=== PATIENT | male | born 1970 | race Caucasian/White ===

== ENCOUNTER 2022-09-25 16:06 | Emergency (ER) | payer OTHER, MEDICAID ==
[~2022-09-25] VITALS: Ht 175.3 cm; Wt 70.3 kg
[2022-09-25 16:19] VITALS: BP_SYST 85
--- NOTE | 2022-09-25 16:21 | NUR ---
Patient to ER bed 06 to gown for evaluation. Side rails up. Report given to JAKOB Aguilar.
--- NOTE | 2022-09-25 16:26 | NUR ---
Rashel bustillogermain in [facility] - 09/25/22 at 1629 by [id number] 52 years old male francisca roldan
--- NOTE | 2022-09-25 16:29 | NUR ---
89 years old male biba from home c/o gen weakness placed oncardiac monitor continous pulse will continue to monitor.
[2022-09-25] MEDS ORDERED: NACL 0.9% 1,000 ML IV ONE (17:00)
[2022-09-25 17:52] LABS: EOSINOPHILS # (AUTO) 0.1 K/uL (0.0-0.4); EOSINOPHILS % (AUTO) 0.9 % (0.0-4.0); MEAN CORPUSCULAR HGB CONC 34 % (32-36); MONOCYTES # (AUTO) 0.8 K/uL (0.0-1.0); NEUTROPHILS # (AUTO) 11.2 K/uL (1.8-7.7); WHITE BLOOD COUNT (AUTO) 12.6 K/uL (4.8-10.8)
[2022-09-25 17:57] LABS: BASOPHILS % (AUTO) 0.3 % (0.0-2.0); HEMATOCRIT 39.4 % (36-54); HEMOGLOBIN 13.5 g/dL (14.0-18.0); LYMPHOCYTES # (AUTO) 0.4 K/uL (1.0-5.5); LYMPHOCYTES % (AUTO) 3.4 % (20.5-51.5); MEAN CORPUSCULAR HEMOGLOBIN 29 pg (27-31); MEAN CORPUSCULAR VOLUME 85 fL (79.0-98.0); MONOCYTES % (AUTO) 6.5 % (1.7-9.3); NEUTROPHILS % (AUTO) 88.9 % (40.0-70.0); PLATELET COUNT (AUTO) 231 K/uL (130-430); RED BLOOD CELL COUNT(AUTO) 4.65 MIL/uL (4.2-6.2); RED CELL DISTRIBUTION WIDTH 13.1 % (9.0-15.0)
[2022-09-25 17:59] LABS: ANION GAP 9 (5-15); CALCIUM 8.6 mg/dL (8.4-11.0); CHLORIDE 109 mmol/L (98-107); CREATININE 1.87 mg/dL (0.55-1.30); GLUCOSE 102 mg/dL (70-99); UREA NITROGEN, BLOOD 28 mg/dL (8-21)
[2022-09-25 18:11] LABS: ALANINE AMINOTRANSFERASE 34 U/L (12-78); ALBUMIN 3.2 g/dL (3.4-4.8); AMYLASE 112 U/L (0-100); ASPARTATE AMINOTRANSFERASE 28 U/L (10-37); LIPASE 93 U/L (73-393); TOTAL BILIRUBIN 0.6 mg/dL (0.0-1.0)
[2022-09-25 18:19] LABS: C-REACTIVE PROTEIN QUANT < 0.2 mg/dL (0-0.5); GFR AFRICAN AMERICAN 49 mL/min (>90)
[2022-09-25] MEDS ORDERED: ONDANSETRON HCL 4 MG/2 ML VIAL IVP ONE (19:00)
--- NOTE | 2022-09-25 19:08 | NUR ---
PATIENT MADE AWARE OF NEED OF URINE SAMPLE, VSS, C/O NAUSEA ZOFRAN GIVEN WILL CONTINUE TO MONITOR.
--- NOTE | 2022-09-25 19:30 | NUR ---
Received report from JAKOB Aguilar; assuming care of patient at this time.
--- NOTE | 2022-09-25 19:35 | NUR ---
JIM Brooke at bedside.
--- NOTE | 2022-09-25 19:38 | NUR ---
Patient A/Ox4, VSS, ambulatory, resp even and unlabored. Patient lying in bed with safety precautions in place. Patient's at bedside. Nad noted at this time
[2022-09-25 19:52] LABS: ACETONE, SERUM NEGATIVE (NEGATIVE)
[2022-09-25] MEDS ORDERED: IBUP-1971 PO (19:57)
[2022-09-25] MEDS ORDERED: ONDA-8 TL (19:57)
[2022-09-25 20:10] VITALS: BP_SYST 135
--- NOTE | 2022-09-25 20:10 | NUR ---
Patient given written and verbal discharge instructions and verbalizes understanding. ER MD discussed with patient the results and treatment provided. Patient in stable condition. ID arm band removed. IV catheter removed intact and dressing applied, no active bleeding. Rx of Zofran given. Patient educated on pain management and to follow up with PMD. Pain Scale 0/10. Opportunity for questions provided and answered. Medication side effect fact sheet provided. Patient A/Ox4, VSS, ambulatory, resp even and unlabored. Patient in stable conditon and accompanied by upon discharge.
== END 2022-09-25 20:10 | disposition home or self-care (01) ==
LOC: SED 16:06
DX: K52.9 Noninfective gastroenteritis and colitis, unspecified (principal); R55 Syncope and collapse; R11.10 Vomiting, unspecified; Z79.899 Other long term (current) drug therapy
CPT/HCPCS: 99285; 74176; 96374; 71045; 96361; 80053; 82009; 82150; 82550; 83690; 85025; 86140; 84484; 36415; 93005; 76376; 83605; J2405; J7030

== ENCOUNTER 2023-03-03 17:48 | Inpatient (IN) | payer OTHER, MEDICAID ==
[~2023-03-03] VITALS: Ht 175.3 cm; Wt 70.8 kg
[~2023-03-03 17:48] MED LIST: IBUP-1971 PO; ONDA-8 TL
[2023-03-03 17:50] VITALS: BP_SYST 166
--- NOTE | 2023-03-03 17:52 | NUR ---
PT BROUGHT BACK TO BED IN HALLWAY AND TRIAGED. WILL ASSUME CARE
--- NOTE | 2023-03-03 17:55 | NUR ---
PT STATES GENERALIZED ABD PAIN WITH VOMITING FOR LAST 2 1/2 DAYS, PT VOMITUS HAS NOW TURNED DARK BROWN. PT STATES NO DIARRHEA AT THIS TIME.
[2023-03-03] MEDS ORDERED: NACL 0.9% 2,000 ML IV ONE (19:30)
[2023-03-03] MEDS ORDERED: ONDANSETRON HCL 4 MG/2 ML VIAL IVP ONE (19:30)
[2023-03-03] MEDS ORDERED: PANTOPRAZOLE SODIUM 40 MG/VIAL (PROTONIX) IVP ONE (19:30)
[2023-03-03 19:39] LABS: HEMATOCRIT 39.9 % (36-54); MEAN CORPUSCULAR HEMOGLOBIN 29 pg (27-31); MEAN CORPUSCULAR HGB CONC 33 % (32-36); MEAN CORPUSCULAR VOLUME 87 fL (79.0-98.0); PLATELET COUNT (AUTO) 226 K/uL (130-430); RED BLOOD CELL COUNT(AUTO) 4.56 MIL/uL (4.2-6.2); RED CELL DISTRIBUTION WIDTH 13.2 % (9.0-15.0); WHITE BLOOD COUNT (AUTO) 15.5 K/uL (4.8-10.8)
[2023-03-03 19:40] LABS: CALCIUM 8.6 mg/dL (8.4-11.0); CREATININE 2.13 mg/dL (0.55-1.30)
[2023-03-03 19:41] LABS: INR 1.2 (0.80-1.20)
--- NOTE | 2023-03-03 19:53 | NUR ---
BLOOD CULTURES DRAWN AND SENT, IV ACCESS OBTAINED, PT MEDICATED PER ORDERS, PT PLACED ON GOWN AND ON MONITOR.
[2023-03-03 19:56] LABS: ALBUMIN 2.9 g/dL (3.4-4.8); TOTAL BILIRUBIN 1.4 mg/dL (0.0-1.0)
[2023-03-03 20:10] LABS: BAND % (MANUAL) 1 % (0-6); BASOPHILS % (MANUAL) 0 % (0-2); EOSINOPHILS % (MANUAL) 1 % (0-7); LYMPHOCYTES % (MANUAL) 3 % (20-46); MONOCYTES % (MANUAL) 5 % (0-11)
[2023-03-03] MEDS ORDERED: PROCHLORPERAZINE EDISYLATE 10 MG/2 ML VIAL IVP ONE (20:30)
[2023-03-03] MEDS ORDERED: DIPHENHYDRAMINE INJ 50 MG/ML VIAL IVP ONE (20:30)
[2023-03-03] MEDS ORDERED: PIPERACILLIN/TAZO 3.375 GM in NS 50 ML IV ONE (20:30)
--- NOTE | 2023-03-03 22:15 | NUR ---
Admit bed requested Patient will be admitted to care of Dr. Yudith SINGH. Admitted to TELE unit. Diagnosis GI BLEED, RENAL FAILURE Inpatient (Yes or No) Y Observation (Yes or No) N Orientation concerns or request close to nursing station (Yes or No) N Covid Status PENDING On vent or bipap N Isolation requirements N Needs a sitter N From Home (Yes or if No enter name of facility) N Requires Dialysis (Yes or No) N Med Rec Completed (Yes of No) N
[2023-03-03] MEDS ORDERED: LORazepam 2 MG/ML VIAL IVP PRN (23:00)
[2023-03-03] MEDS ORDERED: MORPHINE 2 MG/ML INJ. SYRINGE IVP PRN (23:00)
[2023-03-03] MEDS ORDERED: NALOXONE HCL 0.4 MG/ML AMP (NARCAN) IVP PRN (23:00)
[2023-03-03] MEDS ORDERED: MORPHINE 4 MG INJ. 4 MG/ML VIAL IVP PRN (23:00)
--- NOTE | 2023-03-03 23:20 | NUR ---
PT TRANSPORTED BY ED TO TELE BED 101. REPORT GIVEN TO JITENDRA ROBERT. PT AAOX4, VSS
[2023-03-03 23:30] VITALS: BP_SYST 137
--- NOTE | 2023-03-03 23:30 | NUR ---
ADMISSION NOTE Received patient from ER via gurney. Patient admitted with diagnosis of GI Bleed and Renal Failure. Patient is awake, alert, oriented X 4. Patient oriented to hospital room, call light, toileting, pain management and safety-teach back done. Patient informed that I will be his nurse and that their room number is 101B. Personal belongings checked and Belongings List documented. Call light within reach.
[2023-03-03] MEDS: D5/0.45 NS 1,000 ML IV SCH (23:34)
[2023-03-03] MEDS: ONDANSETRON HCL 4 MG/2 ML VIAL IVP PRN (23:49)
[2023-03-03] MEDS ORDERED: PIPERACILLIN/TAZOBACTAM 3.375 GM/VIAL (ZOSYN) IV ONE (23:53)
[2023-03-04 00:47] VITALS: BP_SYST 155
--- NOTE | 2023-03-04 04:40 | NUR ---
CONSULTATION PAGED/CALLED Reason for Consultation: GI Bleed Person Who was Notified: Jessica Consulting Physician: Dr. Haas (Dr. Shook is collision technician) Ordering Physician: Herman Finch
--- NOTE | 2023-03-04 04:44 | NUR ---
CONSULTATION PAGED/CALLED Reason for Consultation: Renal Failure Person Who was Notified: Jessica Consulting Physician: Ld Davenport (Dr. Clark is penetration tester) Ordering Physician: Herman Finch
[2023-03-04 06:31] LABS: BASOPHILS % (AUTO) 0.1 % (0.0-2.0); EOSINOPHILS % (AUTO) 0.2 % (0.0-4.0); HEMOGLOBIN 12.6 g/dL (14.0-18.0); LYMPHOCYTES # (AUTO) 0.4 K/uL (1.0-5.5); LYMPHOCYTES % (AUTO) 3.5 % (20.5-51.5); MEAN CORPUSCULAR HEMOGLOBIN 29 pg (27-31); MEAN CORPUSCULAR HGB CONC 32 % (32-36); MEAN CORPUSCULAR VOLUME 89 fL (79.0-98.0); MONOCYTES # (AUTO) 0.8 K/uL (0.0-1.0); MONOCYTES % (AUTO) 6.4 % (1.7-9.3); NEUTROPHILS # (AUTO) 11.1 K/uL (1.8-7.7); NEUTROPHILS % (AUTO) 89.8 % (40.0-70.0); PLATELET COUNT (AUTO) 177 K/uL (130-430); RED BLOOD CELL COUNT(AUTO) 4.37 MIL/uL (4.2-6.2); RED CELL DISTRIBUTION WIDTH 13.3 % (9.0-15.0); WHITE BLOOD COUNT (AUTO) 12.4 K/uL (4.8-10.8)
[2023-03-04 06:48] LABS: CREATININE 2.07 mg/dL (0.55-1.30); PHOSPHORUS 3.3 mg/dL (2.7-4.5)
--- NOTE | 2023-03-04 07:30 | NUR ---
Received Patient sitting in bed, actively vomiting. Offgoing RN to provide PRN Zofran to avoid delay as they are IV push & oncoming coverage RN is unavailable at this time d/t receiving report for her assigned patients. Patient breathing is difficult to assess d/t active vomiting. Patient denies pain or SOB. Patient states he is thirsty & requests something to drink or ice chips but diet order currently NPO. 20 gauge to left AC with D5 1/2 NS running @ 100 mL/hour. Bed in lowest position with wheels locked. Bed alarm activated. Call light & personal items within reach.
[2023-03-04] MEDS: ONDANSETRON HCL 4 MG/2 ML VIAL IVP PRN (07:34)
[2023-03-04 08:00] VITALS: BP_SYST 145
[2023-03-04] MEDS: D5/0.45 NS 1,000 ML IV SCH ×2 (08:58→18:36)
[2023-03-04] MEDS: PANTOPRAZOLE SODIUM 40 MG/VIAL (PROTONIX) IVP SCH ×2 (10:19→20:12)
--- NOTE | 2023-03-04 11:20 | NUR ---
Patient continues to actively vomit despite PRN Zofran dose. Paged Dr. Herman Chatterjee & received new order for Compazine 10 mg q6h IVP PRN for nausea/vomiting. Order read back, verified & entered.
[2023-03-04] MEDS: PROCHLORPERAZINE EDISYLATE 10 MG/2 ML VIAL IVP PRN (13:19)
[2023-03-04 15:23] VITALS: BP_SYST 136
[2023-03-04 16:00] VITALS: BP_SYST 140
--- NOTE | 2023-03-04 18:45 | NUR ---
Patient diet was changed from NPO to full liquid. Patient continues to vomit but not as frequently & seems to be tolerating the change well. Patient was given wipes & a clean gown to freshen up, per his request. Vitals are WNL. No c/o pain or SOB. No signs of acute distres noted. IV patent with D5 1/2 NS running. Bed in low, locked position. at bedside.
[2023-03-04 20:00] VITALS: BP_SYST 157
[2023-03-04] MEDS ORDERED: ACETAMINOPHEN 325 MG TABLET PO PRN (20:00)
[2023-03-05] VITALS: BP_SYST 141
[2023-03-05] MEDS: D5/0.45 NS 1,000 ML IV SCH ×2 (05:50→14:15)
[2023-03-05] MEDS: PROCHLORPERAZINE EDISYLATE 10 MG/2 ML VIAL IVP PRN (06:42)
--- NOTE | 2023-03-05 08:01 | NUR ---
INITIAL ROUNDS Received pt AAOx4, no s/s resp distress, no c/o pain or discomfort. IVF infusing well to RFA at ordered rate with no s/s infiltration to site. Noted dressing to left foot clean, dry and intact. Plan of care for the day reviewed with pt-pt verbalized his understanding. Pain management, disease process, skin and safety discussed-teach back done. Call light within reach.
[2023-03-05 09:06] VITALS: BP_SYST 135
[2023-03-05] MEDS: PANTOPRAZOLE SODIUM 40 MG/VIAL (PROTONIX) IVP SCH ×2 (09:43→21:39)
[2023-03-05] MEDS ORDERED: PRO40 PO (10:30)
[2023-03-05 10:55] LABS: BASOPHILS % (AUTO) 0.1 % (0.0-2.0); EOSINOPHILS % (AUTO) 0.1 % (0.0-4.0); HEMATOCRIT 38.7 % (36-54); HEMOGLOBIN 12.6 g/dL (14.0-18.0); LYMPHOCYTES # (AUTO) 0.2 K/uL (1.0-5.5); LYMPHOCYTES % (AUTO) 3.5 % (20.5-51.5); MEAN CORPUSCULAR HEMOGLOBIN 29 pg (27-31); MEAN CORPUSCULAR HGB CONC 33 % (32-36); MEAN CORPUSCULAR VOLUME 88 fL (79.0-98.0); MONOCYTES # (AUTO) 0.3 K/uL (0.0-1.0); MONOCYTES % (AUTO) 5.5 % (1.7-9.3); NEUTROPHILS # (AUTO) 5.8 K/uL (1.8-7.7); NEUTROPHILS % (AUTO) 90.8 % (40.0-70.0); PLATELET COUNT (AUTO) 169 K/uL (130-430); RED BLOOD CELL COUNT(AUTO) 4.38 MIL/uL (4.2-6.2); RED CELL DISTRIBUTION WIDTH 13.5 % (9.0-15.0); WHITE BLOOD COUNT (AUTO) 6.3 K/uL (4.8-10.8)
[2023-03-05 11:09] LABS: CALCIUM 8.1 mg/dL (8.4-11.0); CREATININE 2.22 mg/dL (0.55-1.30)
--- NOTE | 2023-03-05 12:23 | NUR ---
ELEVATED GLUCOSE Did fingerstick on pt, 518 mg/dl, Dr. Chatterjee here and informed and order given for SSI regular Insulin.
[2023-03-05] MEDS ORDERED: GLUCOSE (DEXTROSE) ORAL GEL -Adults PO PRN (12:30)
[2023-03-05] MEDS ORDERED: D5W 1,000 ML IV PRN (12:30)
[2023-03-05] MEDS ORDERED: DEXTROSE 50% JECT 50 ML DISP.SYRIN IVP PRN (12:30)
[2023-03-05] MEDS: INSULIN REGULAR, HUMAN 100 UNITS/ML, 3 ML VIAL (humuLIN R) SUBCUT PRN ×3 (12:42→21:43)
--- NOTE | 2023-03-05 12:49 | NUR ---
Dietitian Recommendations * Ordered [facility] GI soft diet * Consider DC D5NS d/t high BG levels * Consider obtaining Hgba1c value GS, MPH, RD Please refer to RD Assessment for further details. Thanks! Addendum: 03/05/23 at [address] Amended: Links added.
--- NOTE | 2023-03-05 14:03 | NUR ---
WOUND CARE Dressing to left removed, area cleansed with normal saline, Hydrogel placed onto wound bed, covered with a foam dressing and secured in place with a kerlex dressing. Wound bed 25% pink tissue, 75% white tissue, periwound white tissue, intact, no odor, moderate drainage. Wound measures 1 cm x 1 cm x 0.3 cm. Pt's foot off-loaded for skin care. Pt tolerated it well.
--- NOTE | 2023-03-05 16:03 | NUR ---
CONSULTATION PAGED/CALLED Reason for Consultation: gram+ cocci blood culture Person Who was Notified: janiya BILLS Consulting Physician: Dr. Swenson Precision Assembler Specialty: ID Ordering Physician: BRUNILDA
[2023-03-05 16:45] VITALS: BP_SYST 132
[2023-03-05] MEDS ORDERED: cefTRIAXone 1 GM IVPB PREMIX 50 ML IV SCH (17:00)
--- NOTE | 2023-03-05 19:25 | NUR ---
CLOSING NOTE Pt resting quietly in bed with no s/s resp distress, no c/o pain or discomfort. Pt ate a small amount at dinner, pt stated the food smell made him nauseous-pt declined an anti-emetic at this time. Pt's family at bedside. Call light within reach.
[2023-03-05 20:00] VITALS: BP_SYST 154
[2023-03-05] MEDS ORDERED: VANCOMYCIN HCL 1 GM/NS PREMIX 250 ML IV ONE (20:00)
[2023-03-05] MEDS ORDERED: VANCOMYCIN HCL 1000 MG/VIAL IV ONE (21:28)
[2023-03-06] MEDS: D5/0.45 NS 1,000 ML IV SCH ×2 (00:15→09:00)
[2023-03-06 00:48] VITALS: BP_SYST 141
[2023-03-06] MEDS: INSULIN REGULAR, HUMAN 100 UNITS/ML, 3 ML VIAL (humuLIN R) SUBCUT PRN ×4 (05:55→22:00)
[2023-03-06 06:07] LABS: BASOPHILS % (AUTO) 0.8 % (0.0-2.0); EOSINOPHILS # (AUTO) 0.1 K/uL (0.0-0.4); EOSINOPHILS % (AUTO) 1.7 % (0.0-4.0); HEMATOCRIT 39.9 % (36-54); HEMOGLOBIN 13.2 g/dL (14.0-18.0); LYMPHOCYTES # (AUTO) 0.7 K/uL (1.0-5.5); LYMPHOCYTES % (AUTO) 11.2 % (20.5-51.5); MEAN CORPUSCULAR HEMOGLOBIN 29 pg (27-31); MEAN CORPUSCULAR HGB CONC 33 % (32-36); MEAN CORPUSCULAR VOLUME 88 fL (79.0-98.0); MONOCYTES # (AUTO) 0.7 K/uL (0.0-1.0); MONOCYTES % (AUTO) 11.8 % (1.7-9.3); NEUTROPHILS # (AUTO) 4.6 K/uL (1.8-7.7); NEUTROPHILS % (AUTO) 74.5 % (40.0-70.0); PLATELET COUNT (AUTO) 184 K/uL (130-430); RED BLOOD CELL COUNT(AUTO) 4.56 MIL/uL (4.2-6.2); RED CELL DISTRIBUTION WIDTH 13.3 % (9.0-15.0); WHITE BLOOD COUNT (AUTO) 6.2 K/uL (4.8-10.8)
[2023-03-06 06:35] LABS: ALBUMIN 2.5 g/dL (3.4-4.8); CALCIUM 8.5 mg/dL (8.4-11.0); CREATININE 1.49 mg/dL (0.55-1.30); PHOSPHORUS 2.2 mg/dL (2.7-4.5); TOTAL BILIRUBIN 0.8 mg/dL (0.0-1.0)
[2023-03-06] MEDS: PANTOPRAZOLE SODIUM 40 MG/VIAL (PROTONIX) IVP SCH ×2 (08:02→21:00)
[2023-03-06] MEDS: ONDANSETRON HCL 4 MG/2 ML VIAL IVP PRN (08:02)
--- NOTE | 2023-03-06 08:07 | NUR ---
DR CHAMORRO WAS HERE AND AWARE THAT PT IS STILL HAVING DRY HEAVES. MD SAID HE MAY HAVE TO SCOPE THE PT IN AM.
[2023-03-06 08:22] VITALS: BP_SYST 163
[2023-03-06 08:47] LABS: ERYTHROCYTE SEDIMENTATION RATE 53 MM/HR (0-15)
[2023-03-06] MEDS ORDERED: NA PHOS 15 MM in NS 250 ML IV ONE (10:30)
[2023-03-06] MEDS: AMPICILLIN SODIUM 2 GM in NS 100 ML IV SCH ×2 (13:57→17:38)
[2023-03-06 16:34] VITALS: BP_SYST 142
--- NOTE | 2023-03-06 18:45 | NUR ---
PT'S FOOT DRESSING CHANGED. PT TOLERATED WELL. PT SIGNED CONSENT FOR EGD IN AM. PT NPO AFTER MIDNIGHT. ENDORSED TO NIGHT NURSE.
--- NOTE | 2023-03-06 19:24 | NUR ---
RECEIVED REPORT ON PATIENT FROM JAKOB LINCOLN, ASSUMED CARE, AND STARTED ASSESSMENT.
[2023-03-06 20:00] VITALS: BP_SYST 130
[2023-03-06] MEDS ORDERED: VANCOMYCIN HCL 750 MG in NS 250 ML IV SCH (21:00)
--- NOTE | 2023-03-07 04:10 | NUR ---
PT FOUND REGURGITATING INTO AN EMESIS BAG. HE EMITTED 300 MLS OF YELLOW, BILE APPEARING EMESIS. PATIENT IS NPO FOR AN EGD LATER ON TODAY. HE ADMITTED TO DRINKING YELLOW GATORADE. REINFORCED THE IMPORTANCE OF REMAINING NPO. HE GAVE HIS WORD AND CONTRACTED THAT HE WOULD. DOMINGO CONTINUE TO MONITOR AND ASSESS FOR SAFETY AND COMFORT.
--- NOTE | 2023-03-07 04:53 | NUR ---
URINE SAMPLE SENT TO THE LAB PER MD ORDERS.
[2023-03-07 05:22] LABS: BASOPHILS % (AUTO) 0.3 % (0.0-2.0); EOSINOPHILS % (AUTO) 0.4 % (0.0-4.0); HEMATOCRIT 38.3 % (36-54); HEMOGLOBIN 12.7 g/dL (14.0-18.0); LYMPHOCYTES # (AUTO) 0.7 K/uL (1.0-5.5); MEAN CORPUSCULAR HEMOGLOBIN 29 pg (27-31); MEAN CORPUSCULAR HGB CONC 33 % (32-36); MEAN CORPUSCULAR VOLUME 87 fL (79.0-98.0); MONOCYTES # (AUTO) 0.6 K/uL (0.0-1.0); MONOCYTES % (AUTO) 8.5 % (1.7-9.3); NEUTROPHILS # (AUTO) 5.9 K/uL (1.8-7.7); NEUTROPHILS % (AUTO) 80.8 % (40.0-70.0); PLATELET COUNT (AUTO) 192 K/uL (130-430); RED BLOOD CELL COUNT(AUTO) 4.43 MIL/uL (4.2-6.2); RED CELL DISTRIBUTION WIDTH 13.4 % (9.0-15.0); WHITE BLOOD COUNT (AUTO) 7.3 K/uL (4.8-10.8)
[2023-03-07] MEDS: AMPICILLIN SODIUM 2 GM in NS 100 ML IV SCH ×4 (05:27→17:56)
[2023-03-07 05:38] LABS: ALBUMIN 2.4 g/dL (3.4-4.8); C-REACTIVE PROTEIN QUANT 11.7 mg/dL (0-0.5); CALCIUM 8.2 mg/dL (8.4-11.0); CREATININE 1.31 mg/dL (0.55-1.30); PHOSPHORUS 3.2 mg/dL (2.7-4.5); TOTAL BILIRUBIN 0.7 mg/dL (0.0-1.0)
[2023-03-07] MEDS: PROCHLORPERAZINE EDISYLATE 10 MG/2 ML VIAL IVP PRN (05:39)
[2023-03-07] MEDS: INSULIN REGULAR, HUMAN 100 UNITS/ML, 3 ML VIAL (humuLIN R) SUBCUT PRN ×4 (05:44→21:50)
[2023-03-07] MEDS ORDERED: MEPERIDINE 50 MG/ML VIAL ONE (06:16)
[2023-03-07] MEDS ORDERED: SIMETHICONE 40 MG/0.6 ML ML ONE (06:16)
[2023-03-07] MEDS ORDERED: MIDAZOLAM HCL 5 MG/5 ML VIAL ONE (06:17)
[2023-03-07 07:29] LABS: PROTHROMBIN TIME 10.5 SECS (9.5-12.5)
[2023-03-07 07:59] LABS: ERYTHROCYTE SEDIMENTATION RATE 48 MM/HR (0-15)
[2023-03-07 08:00] VITALS: BP_SYST 138
[2023-03-07] MEDS: PANTOPRAZOLE SODIUM 40 MG/VIAL (PROTONIX) IVP SCH ×2 (08:15→21:47)
--- NOTE | 2023-03-07 10:14 | NUR ---
CONSULTATION: REASON FOR CONSULT: JACKY/POSSIBLE ENDOCARDITIS CONSULTING PHYSICIAN: Shavon WORLEY ORDERED BY: Tessy WORLEY SPOKE WITH DR WORLEY HIMSELF AND IS AWARE OF CONSULT
--- NOTE | 2023-03-07 11:35 | NUR ---
pt to have bone scan of foot in am Addendum: 03/07/23 at 1151 by Rashel Lewis RN pt to now not have bone scan over weekend or outpatient
--- NOTE | 2023-03-07 11:52 | NUR ---
pt to have gastric emptying in am. pt to be NPO after midnight. no stomach medications given after midnight.
[2023-03-07 12:00] VITALS: BP_SYST 126
--- NOTE | 2023-03-07 12:09 | NUR ---
pt returned from egd. pt tolerated well. pt on clear liquids
[2023-03-07 15:05] VITALS: BP_SYST 123
[2023-03-07] MEDS: METOCLOPRAMIDE HCL 10 MG/2 ML VIAL IVP SCH (17:54)
[2023-03-07 20:00] VITALS: BP_SYST 156
[2023-03-08] MEDS: AMPICILLIN SODIUM 2 GM in NS 100 ML IV SCH ×5 (00:16→23:52)
[2023-03-08 00:36] VITALS: BP_SYST 146
[2023-03-08] MEDS: METOCLOPRAMIDE HCL 10 MG/2 ML VIAL IVP SCH ×3 (05:53→17:09)
[2023-03-08] MEDS: INSULIN REGULAR, HUMAN 100 UNITS/ML, 3 ML VIAL (humuLIN R) SUBCUT PRN ×4 (06:16→20:28)
--- NOTE | 2023-03-08 06:20 | NUR ---
Wound culture collected and sent to lab. Left foot wound care done. Noted moderated amount of serous, foul drainage. Cleansed with NS, patted dry applied hydrogel, covered with optifoam dressing and gauze. Pt tolerated well.
--- NOTE | 2023-03-08 06:30 | NUR ---
Closing notes Pt awake, alert, no s/s distress noted. BS [id number]. Pt maintained NPO for gastric emptying procedure. Call light within reach. Bed low, locked, siderails up x2.
[2023-03-08 06:50] LABS: BASOPHILS % (AUTO) 0.3 % (0.0-2.0); EOSINOPHILS # (AUTO) 0.1 K/uL (0.0-0.4); EOSINOPHILS % (AUTO) 0.7 % (0.0-4.0); HEMATOCRIT 37.6 % (36-54); HEMOGLOBIN 12.6 g/dL (14.0-18.0); LYMPHOCYTES % (AUTO) 12.3 % (20.5-51.5); MEAN CORPUSCULAR HEMOGLOBIN 29 pg (27-31); MEAN CORPUSCULAR HGB CONC 34 % (32-36); MEAN CORPUSCULAR VOLUME 86 fL (79.0-98.0); MONOCYTES # (AUTO) 0.8 K/uL (0.0-1.0); MONOCYTES % (AUTO) 8.8 % (1.7-9.3); NEUTROPHILS # (AUTO) 6.6 K/uL (1.8-7.7); NEUTROPHILS % (AUTO) 77.9 % (40.0-70.0); PLATELET COUNT (AUTO) 209 K/uL (130-430); RED BLOOD CELL COUNT(AUTO) 4.37 MIL/uL (4.2-6.2); RED CELL DISTRIBUTION WIDTH 13.3 % (9.0-15.0); WHITE BLOOD COUNT (AUTO) 8.5 K/uL (4.8-10.8)
--- NOTE | 2023-03-08 07:00 | NUR ---
Pt taken for gastric emptying via wheelchair.
[2023-03-08 07:29] LABS: ALBUMIN 2.5 g/dL (3.4-4.8); C-REACTIVE PROTEIN QUANT 9.8 mg/dL (0-0.5); CALCIUM 8.2 mg/dL (8.4-11.0); CREATININE 1.26 mg/dL (0.55-1.30); TOTAL BILIRUBIN 0.9 mg/dL (0.0-1.0)
[2023-03-08 08:29] LABS: ERYTHROCYTE SEDIMENTATION RATE 14 MM/HR (0-15)
[2023-03-08 09:33] VITALS: BP_SYST 137
--- NOTE | 2023-03-08 09:33 | NUR ---
pt returned from [place]. called roving technician [phone] to confirm test is completed. states he will speak with Dr and call me back.
[2023-03-08] MEDS ORDERED: CALCIUM 500 MG/TAB PO ONE (10:00)
[2023-03-08] MEDS: PANTOPRAZOLE SODIUM 40 MG/VIAL (PROTONIX) IVP SCH ×2 (10:22→20:16)
--- NOTE | 2023-03-08 10:53 | NUR ---
paged Dr Doss. [facility] tech returned call; [facility] radiologist has read [facility] gastric emptying.
--- NOTE | 2023-03-08 11:01 | NUR ---
spoke with Dr Doss; reported NM gastric emptying result. states ok to start full liquid diet.
[2023-03-08 11:17] VITALS: BP_SYST 126
[2023-03-08 13:06] LABS: CREATININE, URINE 128.5 mg/dL (Not Estab.); MICROALBUMIN URINE RANDOM 1044.1 ug/mL (Not Estab.); MICROALBUMIN/CREAT RATIO, UR 813 mg/g creat (0-29)
--- NOTE | 2023-03-08 14:17 | NUR ---
WOUND EVALUATION: Late note for 03/08/2023 at 1417 secondary to patient care. Wound Consult received from Dr. Herman Chatterjee. Thank you, Dr. Chatterjee, for the consult. Patient received in a Newberry Bed with a mattress, awake, alert, and oriented. Patient is unable to turn independently. Aquilino Score is a . Past Medical History: CHF, Coronary Artery Disease, Diabetes Mellitus, Hypertension, Hyperlipidemia. Recent Labs: WBC 8.5, RBC 4.37, hemoglobin 12.6, hematocrit 37.6, CO2 30, BUN 16, creatinine 1.26, GFR 64, glucose 191, albumin 2.5, C-reactive protein 9.8, alkaline phosphatase 119.4. Microbiology: Blood culture results positive for strep algactiae group B#2. Blood culture results x2 in progress. Urine culture results negative. Wound, foot culture results positive for Klebsiella pneumonia. Intrinsic factors that delay wound healing: CHF, Coronary Artery Disease, Diabetes Mellitus, Hyperglycemia, Hypoalbuminemia. Extrinsic factors that delay wound healing: Decreased mobility. Wound Assessment: 1. Left Plantar Foot: Diabetic/Neuropathic ulcer, present on admission. Wound bed has 70% pink tissue, 30% yellow slough. Mild odor, small yellow drainage. Periwound intact, callused. Wound measures 3.3 cm x 3.5 cm x 1.0 cm. Recommend: Cleanse wound with normal saline. Apply moisture barrier cream to svitlana-wound. Apply Venelex ointment to wound bed cover with foam dressing. Pack wound with 1/4 inch iodoform packing strip. Wrap with Tre wrap. Perform wound care daily, and as needed for dressing soiling or dislodgement. 2. Left lateral mid foot: Diabetic ulcer, present on admission. Wound bed has 100% black eschar. No odor, no drainage. Periwound intact. Fluctuant erythematous raised area present on surrounding tissue. Wound measures 1.5 cm x 3.8 cm. Recommend: Margaret eschar site with Betadine. Allow Betadine to air dry. Cover site with foam dressing. Wrap site with same Tre wrap as used in site 1. 3. Left Fourth Toe: Toe has erythema with calor. Recommend: No dressing needed. Continue to monitor site. 4. Left Dorsal Foot: Left Dorsal Foot has erythema with calor. Recommend: No dressing needed. Continue to monitor site. Also recommend: Encourage and assist patient as needed with reposition every 2 hours with pillow support and off-load pressure areas with pillows for pressure re-distribution. Offload, elevate and float bilateral heels with pillows. Perform skin care and monitor skin integrity Q shift. Recommend surgical consult.
--- NOTE | 2023-03-08 14:18 | NUR ---
left foot wounds assessed by reading coach Tyler. new orders placed for wound care. cleaned and dressed per orders.
[2023-03-08 15:04] VITALS: BP_SYST 158
[2023-03-08] MEDS ORDERED: METOPROLOL SUCCINATE 25 MG TAB.SR.24H (TOPROL XL) PO ONE (18:15)
[2023-03-08 20:00] VITALS: BP_SYST 155; BP_SYST 165
[2023-03-08] MEDS: ATORVASTATIN 20 MG TABLET PO SCH (20:17)
[2023-03-08] MEDS: BENZOCAINE/MENTHOL 1 EACH LOZENGE MM PRN ×2 (20:17→23:59)
[2023-03-08] MEDS ORDERED: CALCIUM CARBONATE 650 MG TABLET PO SCH (21:00)
--- NOTE | 2023-03-08 21:20 | NUR ---
Dr. Morrison saw and talked to pt.
[2023-03-09 00:10] VITALS: BP_SYST 139
[2023-03-09 04:32] LABS: BASOPHILS % (AUTO) 0.2 % (0.0-2.0); EOSINOPHILS # (AUTO) 0.1 K/uL (0.0-0.4); EOSINOPHILS % (AUTO) 1.6 % (0.0-4.0); HEMATOCRIT 33.7 % (36-54); HEMOGLOBIN 11.4 g/dL (14.0-18.0); LYMPHOCYTES # (AUTO) 1.1 K/uL (1.0-5.5); LYMPHOCYTES % (AUTO) 13.1 % (20.5-51.5); MEAN CORPUSCULAR HEMOGLOBIN 29 pg (27-31); MEAN CORPUSCULAR HGB CONC 34 % (32-36); MEAN CORPUSCULAR VOLUME 85 fL (79.0-98.0); MONOCYTES # (AUTO) 0.9 K/uL (0.0-1.0); NEUTROPHILS % (AUTO) 74.1 % (40.0-70.0); PLATELET COUNT (AUTO) 189 K/uL (130-430); RED BLOOD CELL COUNT(AUTO) 3.96 MIL/uL (4.2-6.2); RED CELL DISTRIBUTION WIDTH 12.9 % (9.0-15.0)
[2023-03-09 04:42] LABS: C-REACTIVE PROTEIN QUANT 9.8 mg/dL (0-0.5); CALCIUM 8.2 mg/dL (8.4-11.0); CREATININE 1.22 mg/dL (0.55-1.30)
--- NOTE | 2023-03-09 05:40 | NUR ---
Closing notes Pt asleep, no s/s distress noted. IV saline lock L. FA clear and patent. Dressing to left foot C/D/I. Call light within reach. Bed low, locked, siderails up x2. To endorse to AM nurse.
[2023-03-09] MEDS: AMPICILLIN SODIUM 2 GM in NS 100 ML IV SCH ×3 (06:38→17:03)
[2023-03-09] MEDS: METOCLOPRAMIDE HCL 10 MG/2 ML VIAL IVP SCH (06:38)
--- NOTE | 2023-03-09 07:20 | NUR ---
Braydon Morrison to report MRI result suspicious Osteo spoke to answering service and states office opens at 9AM. Addendum: 03/09/23 at 0734 by Ayaka Chambers RN Correction: to report L. foot Xray result.
[2023-03-09 07:48] LABS: ERYTHROCYTE SEDIMENTATION RATE 17 MM/HR (0-15)
[2023-03-09 08:00] VITALS: BP_SYST 122
[2023-03-09] MEDS: BALSAM PERU/CASTOR OIL 56.7 GM OINT...G. TP SCH (08:06)
[2023-03-09] MEDS: PANTOPRAZOLE SODIUM 40 MG/VIAL (PROTONIX) IVP SCH ×2 (08:12→21:34)
[2023-03-09] MEDS: LOSARTAN POTASSIUM 25 MG TABLET PO SCH (08:13)
[2023-03-09] MEDS: CALCIUM 500 MG/TAB PO SCH (08:13)
[2023-03-09] MEDS: METOPROLOL SUCCINATE 25 MG TAB.SR.24H (TOPROL XL) PO SCH (08:14)
[2023-03-09] MEDS ORDERED: COLLAGENASE TP SCH (09:00)
[2023-03-09] MEDS ORDERED: POTASSIUM CHLORIDE 20 MEQ TAB.PRT.SR PO ONE (10:00)
[2023-03-09 11:38] VITALS: BP_SYST 104; BP_SYST 132
[2023-03-09] MEDS: INSULIN REGULAR, HUMAN 100 UNITS/ML, 3 ML VIAL (humuLIN R) SUBCUT PRN ×3 (11:49→21:48)
[2023-03-09] MEDS: METOCLOPRAMIDE HCL 10 MG TABLET PO SCH ×3 (11:56→21:36)
--- NOTE | 2023-03-09 12:07 | NUR ---
CM spoke with patient Starr regarding DCP options. MRI r/o OM. IV abx. Home with HH/ IV abx vs SNF. states that she would prefer her to DC home with IV abx as she was trained by prior existing HH to administer IV abx when her was discharged from [facility]. cannot remember the name of the prior HH agency and is still looking for the name. CM explained to that DCP is HH vs SNF pending on IV abx medication and frequency also acceptance by a HH agency. is agreeable to plan
--- NOTE | 2023-03-09 12:17 | NUR ---
JACKY/MRI Per Dr Zain Cahtterjee scheduled JACKY for tomorrow at 1000 bedside . informed Dinorah in outpatient surgery and Latia in cardio/respiratory. MRI to be done today. consent given to RN to have patient sign.
--- NOTE | 2023-03-09 16:00 | NUR ---
left foot dressing removed, wound care done and replaced per orders. tolerated without pain. mother at bedside.
[2023-03-09 16:17] VITALS: BP_SYST 141
[2023-03-09 20:00] VITALS: BP_SYST 155
[2023-03-09] MEDS: BENZOCAINE/MENTHOL 1 EACH LOZENGE MM PRN (21:36)
[2023-03-09] MEDS: ATORVASTATIN 20 MG TABLET PO SCH (21:36)
--- NOTE | 2023-03-09 22:00 | NUR ---
Dr Zain Chatterjee, BP 155/92 Called and s/w Dr. Shavon Chatterjee to inform elevated B/P, he asked for daytime V/S trend, it was reported. No orders given.
[2023-03-10] MEDS: AMPICILLIN SODIUM 2 GM in NS 100 ML IV SCH ×5 (00:25→23:34)
[2023-03-10 05:29] LABS: BASOPHILS % (AUTO) 0.2 % (0.0-2.0); EOSINOPHILS # (AUTO) 0.1 K/uL (0.0-0.4); EOSINOPHILS % (AUTO) 1.9 % (0.0-4.0); HEMATOCRIT 32.3 % (36-54); HEMOGLOBIN 10.9 g/dL (14.0-18.0); LYMPHOCYTES # (AUTO) 0.9 K/uL (1.0-5.5); LYMPHOCYTES % (AUTO) 11.9 % (20.5-51.5); MEAN CORPUSCULAR HEMOGLOBIN 29 pg (27-31); MEAN CORPUSCULAR HGB CONC 34 % (32-36); MEAN CORPUSCULAR VOLUME 85 fL (79.0-98.0); MONOCYTES % (AUTO) 12.2 % (1.7-9.3); NEUTROPHILS # (AUTO) 5.9 K/uL (1.8-7.7); NEUTROPHILS % (AUTO) 73.8 % (40.0-70.0); PLATELET COUNT (AUTO) 198 K/uL (130-430); RED BLOOD CELL COUNT(AUTO) 3.78 MIL/uL (4.2-6.2); RED CELL DISTRIBUTION WIDTH 12.6 % (9.0-15.0)
[2023-03-10 06:00] LABS: C-REACTIVE PROTEIN QUANT 9.3 mg/dL (0-0.5); CALCIUM 8.1 mg/dL (8.4-11.0); CREATININE 1.31 mg/dL (0.55-1.30); TOTAL BILIRUBIN 0.7 mg/dL (0.0-1.0)
[2023-03-10 06:20] VITALS: BP_SYST 159
[2023-03-10] MEDS: INSULIN REGULAR, HUMAN 100 UNITS/ML, 3 ML VIAL (humuLIN R) SUBCUT PRN ×3 (06:24→20:34)
[2023-03-10] MEDS: BENZOCAINE/MENTHOL 1 EACH LOZENGE MM PRN ×2 (06:28→20:21)
[2023-03-10] MEDS: METOCLOPRAMIDE HCL 10 MG TABLET PO SCH ×4 (06:38→20:21)
--- NOTE | 2023-03-10 07:20 | NUR ---
closing note Patient resting in bed, no distress and denies pain. Needs met throughout shift. IV to LFA is saline locked and his IV antibiotics were given as scheduled/ordered. He ambulates to restroom and did not want bed alarm. Endorsed care, stable.
[2023-03-10 07:41] LABS: ERYTHROCYTE SEDIMENTATION RATE 36 MM/HR (0-15)
--- NOTE | 2023-03-10 08:00 | NUR ---
Patient Starr left voicemail with prior existing HH agency name and number. [facility] p# [phone]. called them already and they told her they are willing to resume service.
[2023-03-10 08:31] VITALS: BP_SYST 137
[2023-03-10] MEDS: PANTOPRAZOLE SODIUM 40 MG/VIAL (PROTONIX) IVP SCH ×2 (09:20→20:20)
[2023-03-10] MEDS: CALCIUM 500 MG/TAB PO SCH (09:21)
[2023-03-10] MEDS: METOPROLOL SUCCINATE 25 MG TAB.SR.24H (TOPROL XL) PO SCH (09:21)
[2023-03-10] MEDS: LOSARTAN POTASSIUM 25 MG TABLET PO SCH (09:21)
[2023-03-10] MEDS ORDERED: POTASSIUM CHLORIDE 20 MEQ TAB.PRT.SR PO ONE (09:30)
[2023-03-10] MEDS: BALSAM PERU/CASTOR OIL 56.7 GM OINT...G. TP SCH (09:32)
[2023-03-10] MEDS ORDERED: BENZOCAINE 20% 0.5mL UD SPRAY MM ONE (09:48)
[2023-03-10] MEDS ORDERED: LIDOCAINE 2% JELLY UROJECT 10 ML MM ONE (09:48)
[2023-03-10] MEDS ORDERED: fentaNYL CITRATE/PF 100 MCG/2 ML AMP ONE (09:48)
[2023-03-10] MEDS ORDERED: MIDAZOLAM HCL 5 MG/5 ML VIAL ONE (09:48)
[2023-03-10] MEDS ORDERED: fentaNYL CITRATE/PF 100 MCG/2 ML AMP IVP ONE (10:00)
[2023-03-10] MEDS ORDERED: MIDAZOLAM HCL 2 MG/2 ML VIAL (VERSED) IVP ONE (10:00)
[2023-03-10] MEDS ORDERED: LIDOCAINE 2%, 20 ML MDV INJ ONE (10:00)
[2023-03-10 10:31] LABS: PROTHROMBIN TIME 10.8 SECS (9.5-12.5)
--- NOTE | 2023-03-10 11:02 | NUR ---
[id number] PROCEDURE AT BEDSIDE. MONITORED END TIDAL CO2 AND SPO2. ETCO2 30-43, SPO2 95-100% ON NC 2-4LPM. NO RESPIRATORY DISTRESS NOTED.
[2023-03-10] MEDS: FLUCONAZOLE 100 mg/ NS 50 ML IV SCH (13:40)
[2023-03-10] MEDS ORDERED: LIP20 PO (14:06)
[2023-03-10] MEDS ORDERED: ROCPM1 IV (14:06)
[2023-03-10] MEDS ORDERED: PRO40 PO ×2 (14:06)
[2023-03-10] MEDS ORDERED: METO-540 PO (14:06)
[2023-03-10] MEDS ORDERED: METO-290 PO (14:06)
[2023-03-10] MEDS ORDERED: LOSA25TA3 PO (14:06)
--- NOTE | 2023-03-10 16:39 | NUR ---
Patient referral sent to [facility] [phone]. IV ABX referral sent to [facility] infusion, Jerri will besetting up IV Rocephin. Her # is [phone]. She will call when IV ABX are in place.
[2023-03-10 19:00] VITALS: BP_SYST 143
[2023-03-10 20:00] VITALS: BP_SYST 143
--- NOTE | 2023-03-10 20:00 | NUR ---
pt.assessed.v/s assessed values wnl.pt.quiescent.no c/o pain,nausea.pt.presents wound lt.foot dsg intact.pt.ordered d/c home w home health:abx administration .pt';s to call hospital if the abx have been delivered to the house.picc line rt.bicept placed 03/10/23.intact;patent.iv access location lt.forearm intact;patent iv fluids infusing.pt.capable to reposition self.call light/telephone w/in access of the pt.
[2023-03-10] MEDS: ATORVASTATIN 20 MG TABLET PO SCH (20:21)
--- NOTE | 2023-03-10 20:30 | NUR ---
blood glucose assessed value;264mg/dl.
--- NOTE | 2023-03-10 21:00 | NUR ---
insulin;regular:6-u administered per sliding scale.no c/o pain,nausea.no requests posited@this hour.call light/telephone w/in access of the pt. Addendum: 03/11/23 at 0242 by Pankaj Pires RN 2100p medications administered.pt.requested cepacol lozenge administered.pt.capable to ingest the po medications w/out difficulty.
--- NOTE | 2023-03-10 22:00 | NUR ---
pt.assessed.pt.quiescent.no c/o pain,nausea.no requests posited@this hour.pt.capable to reposition self.call light/telephone w/in access of the pt.
--- NOTE | 2023-03-11 | NUR ---
pt.assessed.pt.quiescent;resting.no c/o pain,nausea.iv access intact;patent.abx ivpb ampicillian midnight dose administered. no requests posited@this hour.pt.capable to reposition self.call light/telephone w/in access of the pt.
[2023-03-11 00:18] VITALS: BP_SYST 123
--- NOTE | 2023-03-11 04:00 | NUR ---
pt.assessed.pt.quiescent.no c/o pain,nausea.i have attended to the wound care/wound photo takened. iv access intact;patent.urinal w/in access of the pt.call light/telephone w/in access of the pt.
[2023-03-11] MEDS: AMPICILLIN SODIUM 2 GM in NS 100 ML IV SCH ×4 (06:31→23:03)
[2023-03-11] MEDS: METOCLOPRAMIDE HCL 10 MG TABLET PO SCH ×4 (06:31→20:30)
[2023-03-11] MEDS: INSULIN REGULAR, HUMAN 100 UNITS/ML, 3 ML VIAL (humuLIN R) SUBCUT PRN ×4 (06:44→21:04)
[2023-03-11 07:25] VITALS: BP_SYST 136
[2023-03-11 07:51] LABS: BASOPHILS % (AUTO) 0.3 % (0.0-2.0); EOSINOPHILS # (AUTO) 0.3 K/uL (0.0-0.4); EOSINOPHILS % (AUTO) 3.7 % (0.0-4.0); HEMATOCRIT 32.6 % (36-54); HEMOGLOBIN 11.2 g/dL (14.0-18.0); LYMPHOCYTES % (AUTO) 13.8 % (20.5-51.5); MEAN CORPUSCULAR HEMOGLOBIN 29 pg (27-31); MEAN CORPUSCULAR HGB CONC 34 % (32-36); MEAN CORPUSCULAR VOLUME 85 fL (79.0-98.0); MONOCYTES # (AUTO) 0.7 K/uL (0.0-1.0); MONOCYTES % (AUTO) 10.5 % (1.7-9.3); NEUTROPHILS # (AUTO) 4.9 K/uL (1.8-7.7); NEUTROPHILS % (AUTO) 71.7 % (40.0-70.0); PLATELET COUNT (AUTO) 245 K/uL (130-430); RED BLOOD CELL COUNT(AUTO) 3.85 MIL/uL (4.2-6.2); RED CELL DISTRIBUTION WIDTH 12.7 % (9.0-15.0); WHITE BLOOD COUNT (AUTO) 6.9 K/uL (4.8-10.8)
[2023-03-11 07:57] LABS: C-REACTIVE PROTEIN QUANT 12.4 mg/dL (0-0.5); CALCIUM 7.6 mg/dL (8.4-11.0); CREATININE 1.31 mg/dL (0.55-1.30)
[2023-03-11 08:06] LABS: IMMUNOGLOBULIN A, SERUM 180 mg/dL (90-386)
[2023-03-11 08:08] LABS: ERYTHROCYTE SEDIMENTATION RATE 38 MM/HR (0-15)
[2023-03-11] MEDS: BALSAM PERU/CASTOR OIL 56.7 GM OINT...G. TP SCH (09:00)
[2023-03-11] MEDS: PANTOPRAZOLE SODIUM 40 MG/VIAL (PROTONIX) IVP SCH ×2 (10:36→20:30)
[2023-03-11] MEDS: METOPROLOL SUCCINATE 25 MG TAB.SR.24H (TOPROL XL) PO SCH (10:46)
[2023-03-11] MEDS: CALCIUM 500 MG/TAB PO SCH (10:46)
[2023-03-11] MEDS: LOSARTAN POTASSIUM 25 MG TABLET PO SCH (10:47)
[2023-03-11] MEDS: FLUCONAZOLE 100 mg/ NS 50 ML IV SCH (12:33)
--- NOTE | 2023-03-11 12:46 | NUR ---
FOLLOWED UP WITH [facility] RE: STATUS OF IV ROCEPHIN SET UP. PT CAN BE DISCHARGED ONCE HOME HEALTH FOR IV ANTIBIOTICS (HOME HEALTH) IS SET UP. LEFT LASHON A VOICE MESSAGE.
[2023-03-11 12:47] VITALS: BP_SYST 130
[2023-03-11] MEDS: BENZOCAINE/MENTHOL 1 EACH LOZENGE MM PRN ×2 (13:54→22:49)
[2023-03-11 16:00] VITALS: BP_SYST 132
--- NOTE | 2023-03-11 18:15 | NUR ---
Note Spoke to Jerri from [facility] home infusion at 1108am and 1439. IV medications are at pt's home, difficulty getting Home Health agency to dispense IVPB medications and do wound care. Jerri still working on finding Home Health agency. Dr Herman Chatterjee was on the floor doing rounds and was informed about delay, MD stated pt can wait till home health agency found. Pt went for Bone Scan part one and waiting for part 2 to bed done this evening. Left foot dressing was done - there was drainage when pt ambulated from bed to BS chair this afternoon. Pt's bed in low position and bed alarm on. Side rails raised. Pt was checked on q1' and PRN all shift, pt was maintained with safety precautions all shift. NASH PICC intact and patent. LFA IV intact and patent infusing IVPBs well. No needs noted. Call light within reach.
--- NOTE | 2023-03-11 18:45 | NUR ---
note pt returned from part 2 of bone scan. Pt went via wheelchair for procedure.
[2023-03-11] MEDS: ATORVASTATIN 20 MG TABLET PO SCH (20:30)
[2023-03-11 20:39] VITALS: BP_SYST 144
--- NOTE | 2023-03-12 | NUR ---
24 HR CHART CHECK DONE.
[2023-03-12 00:13] VITALS: BP_SYST 160
[2023-03-12] MEDS: AMPICILLIN SODIUM 2 GM in NS 100 ML IV SCH ×3 (05:26→17:43)
[2023-03-12] MEDS: METOCLOPRAMIDE HCL 10 MG TABLET PO SCH ×4 (05:27→20:18)
--- NOTE | 2023-03-12 05:29 | NUR ---
PT AWAKE AND ORIENTED. CHANGED LEFT DIABETIC WOUND DRESSING PER WOUND CARE INSTRUCTION. BS 190 AND 137. RT UPPER ARM DOUBLE LUMEN PICC LINE INTACT. ALSO PT HAS S/L ON LEFT FOREARM. GIVEN AMPICILLIN IVPB EVERY 6HR. USED URINAL. DENIED ANY PAIN.
[2023-03-12 07:01] LABS: BASOPHILS % (AUTO) 0.4 % (0.0-2.0); EOSINOPHILS # (AUTO) 0.3 K/uL (0.0-0.4); EOSINOPHILS % (AUTO) 3.4 % (0.0-4.0); HEMATOCRIT 33.7 % (36-54); HEMOGLOBIN 11.5 g/dL (14.0-18.0); LYMPHOCYTES # (AUTO) 1.1 K/uL (1.0-5.5); MEAN CORPUSCULAR HEMOGLOBIN 29 pg (27-31); MEAN CORPUSCULAR HGB CONC 34 % (32-36); MEAN CORPUSCULAR VOLUME 85 fL (79.0-98.0); MONOCYTES # (AUTO) 0.9 K/uL (0.0-1.0); MONOCYTES % (AUTO) 10.3 % (1.7-9.3); NEUTROPHILS # (AUTO) 6.1 K/uL (1.8-7.7); NEUTROPHILS % (AUTO) 72.9 % (40.0-70.0); PLATELET COUNT (AUTO) 286 K/uL (130-430); RED BLOOD CELL COUNT(AUTO) 3.95 MIL/uL (4.2-6.2); RED CELL DISTRIBUTION WIDTH 12.9 % (9.0-15.0); WHITE BLOOD COUNT (AUTO) 8.3 K/uL (4.8-10.8)
[2023-03-12 07:16] LABS: C-REACTIVE PROTEIN QUANT 11.3 mg/dL (0-0.5); CALCIUM 7.9 mg/dL (8.4-11.0); CREATININE 1.37 mg/dL (0.55-1.30)
[2023-03-12 08:00] VITALS: BP_SYST 129
[2023-03-12 08:07] LABS: ERYTHROCYTE SEDIMENTATION RATE 50 MM/HR (0-15)
[2023-03-12] MEDS ORDERED: POTASSIUM CHLORIDE 20 MEQ TAB.PRT.SR PO ONE (09:00)
[2023-03-12] MEDS: METOPROLOL SUCCINATE 25 MG TAB.SR.24H (TOPROL XL) PO SCH (09:55)
[2023-03-12] MEDS: PANTOPRAZOLE SODIUM 40 MG/VIAL (PROTONIX) IVP SCH ×2 (09:55→20:18)
[2023-03-12] MEDS: CALCIUM 500 MG/TAB PO SCH (09:56)
[2023-03-12] MEDS: LOSARTAN POTASSIUM 25 MG TABLET PO SCH (09:56)
[2023-03-12 12:00] VITALS: BP_SYST 150
[2023-03-12] MEDS: INSULIN REGULAR, HUMAN 100 UNITS/ML, 3 ML VIAL (humuLIN R) SUBCUT PRN ×3 (12:05→20:39)
[2023-03-12] MEDS: BALSAM PERU/CASTOR OIL 56.7 GM OINT...G. TP SCH (13:00)
[2023-03-12] MEDS: FLUCONAZOLE 100 mg/ NS 50 ML IV SCH (13:18)
[2023-03-12 16:08] VITALS: BP_SYST 138
--- NOTE | 2023-03-12 18:51 | NUR ---
PATIENT AAOX4, DENIES ANY DISCOMFORT,TOLERATED MEDS AND DIET WELL. DRESSING CHANGE DONE ORDERED TO LEFT FOOT. PICC LINE TO NASH FLUSHED WELL WITH GOOD BLOOD RETURN. CONTINUE WITH POC, SAFETY PRECAUTIONS MAINTAINED THIS SHIFT.
[2023-03-12 19:00] VITALS: BP_SYST 144
--- NOTE | 2023-03-12 19:15 | NUR ---
change of shift.pt.quiescent affect;calm.pt.presents diabetic ulcer;wound location:lt.foot plantar;lateral aspect.dsg intact absent drainage.pt.presents picc line location rt.bicept intact iv lock status.pt.presents iv access location lt.forearm iv lock status.call light/telephone w/in access of the pt.
[2023-03-12 20:00] VITALS: BP_SYST 144
--- NOTE | 2023-03-12 20:00 | NUR ---
pt.assessed.v/s assessed values wnl.no c/o pain,nausea.pt.apprised snacks/beverages are available w/in the shift. no requests posited@this hour.pt.capable to reposition self.call light/telephone w/in access of the pt.
[2023-03-12] MEDS: ATORVASTATIN 20 MG TABLET PO SCH (20:18)
--- NOTE | 2023-03-12 20:30 | NUR ---
blood glucose assessed value;315mg/dl.
--- NOTE | 2023-03-12 21:00 | NUR ---
2100p medications administered.insulin;regular:8-u administered per sliding scale.no c/o pain,nausea.no requests posited @this hour.
--- NOTE | 2023-03-12 22:00 | NUR ---
pt.assessed.pt.quiescent.no c/o pain,nausea.no requests posited@this hour.pt.capable to reposition self.call light/telephone w/in access of the pt.
--- NOTE | 2023-03-12 23:30 | NUR ---
pt.requested lozenge.administered.
[2023-03-12] MEDS: DEXTROMET/BENZOCAIN/MENTHOL SF 1 LOZENGE MM PRN (23:44)
--- NOTE | 2023-03-13 | NUR ---
pt.assessed.pt.quiescent resting c/o pain,nausea.no requests posited@this hour.pt.capable to reposition self. call light/telephone w/in access of the pt.
[2023-03-13 00:10] VITALS: BP_SYST 146
--- NOTE | 2023-03-13 02:00 | NUR ---
pt.assessed.pt.quiescent.per flacc pain mgx pt.absent facial grimaces/body posturing.picc line,iv access intact. pt.capable to reposition self.call light/telephone w/in access of the pt.
--- NOTE | 2023-03-13 04:00 | NUR ---
pt.assessed.pt.quiescent.per flacc pain mgx pt.absent facial grimaces/body posturing.pt.capable to reposition self. call light/telephone w/in access of the pt.
[2023-03-13 04:45] LABS: C-REACTIVE PROTEIN QUANT 8.8 mg/dL (0-0.5); CALCIUM 7.5 mg/dL (8.4-11.0); CREATININE 1.52 mg/dL (0.55-1.30); TOTAL BILIRUBIN 0.4 mg/dL (0.0-1.0)
[2023-03-13 04:53] LABS: BASOPHILS % (AUTO) 0.5 % (0.0-2.0); EOSINOPHILS # (AUTO) 0.2 K/uL (0.0-0.4); EOSINOPHILS % (AUTO) 2.2 % (0.0-4.0); HEMATOCRIT 29.6 % (36-54); HEMOGLOBIN 10.1 g/dL (14.0-18.0); LYMPHOCYTES # (AUTO) 1.1 K/uL (1.0-5.5); LYMPHOCYTES % (AUTO) 12.7 % (20.5-51.5); MEAN CORPUSCULAR HEMOGLOBIN 29 pg (27-31); MEAN CORPUSCULAR HGB CONC 34 % (32-36); MEAN CORPUSCULAR VOLUME 85 fL (79.0-98.0); MONOCYTES # (AUTO) 0.8 K/uL (0.0-1.0); MONOCYTES % (AUTO) 9.3 % (1.7-9.3); NEUTROPHILS # (AUTO) 6.3 K/uL (1.8-7.7); NEUTROPHILS % (AUTO) 75.3 % (40.0-70.0); PLATELET COUNT (AUTO) 298 K/uL (130-430); RED BLOOD CELL COUNT(AUTO) 3.48 MIL/uL (4.2-6.2); RED CELL DISTRIBUTION WIDTH 13.1 % (9.0-15.0); WHITE BLOOD COUNT (AUTO) 8.4 K/uL (4.8-10.8)
--- NOTE | 2023-03-13 06:00 | NUR ---
pt.assessed.no c/o pain,nausea.no requests posited@this hour.blood glucose assessed value;118mg/dl.i have attended to the wound care/dsg change.pt.capable to reposition self.call light/telephone w/in access of the pt.
[2023-03-13] MEDS: METOCLOPRAMIDE HCL 10 MG TABLET PO SCH ×2 (06:27→12:10)
[2023-03-13 07:00] LABS: ERYTHROCYTE SEDIMENTATION RATE 38 MM/HR (0-15)
[2023-03-13] MEDS: AMPICILLIN SODIUM 2 GM in NS 100 ML IV SCH ×3 (07:30)
[2023-03-13] MEDS: PANTOPRAZOLE SODIUM 40 MG/VIAL (PROTONIX) IVP SCH (09:07)
[2023-03-13] MEDS: METOPROLOL SUCCINATE 25 MG TAB.SR.24H (TOPROL XL) PO SCH (09:07)
[2023-03-13] MEDS: LOSARTAN POTASSIUM 25 MG TABLET PO SCH (09:08)
[2023-03-13] MEDS: BALSAM PERU/CASTOR OIL 56.7 GM OINT...G. TP SCH (09:10)
[2023-03-13] MEDS: CALCIUM 500 MG/TAB PO SCH (09:10)
--- NOTE | 2023-03-13 09:36 | NUR ---
CM follow up with [facility] [phone]. They are not contracted with patient insurance and cannot accept him
--- NOTE | 2023-03-13 09:54 | NUR ---
CM faxed referral for home health to Darron at [facility] f#[phone]
[2023-03-13] MEDS: FLUCONAZOLE 100 mg/ NS 50 ML IV SCH (12:08)
[2023-03-13] MEDS: INSULIN REGULAR, HUMAN 100 UNITS/ML, 3 ML VIAL (humuLIN R) SUBCUT PRN (12:13)
[2023-03-13 12:36] LABS: TRANSGLUTAMINASE IGA < 2 U/mL (0-3)
--- NOTE | 2023-03-13 13:04 | NUR ---
Patient accepted with [facility] [phone]. Agency to reach out to patient and family to discuss co-payment. CM to follow up if family accepts. Annie from [facility] called to inform that the patient would also need a co-pay for services. Home Health service with [facility] to be determined by family decision.
--- NOTE | 2023-03-13 14:18 | NUR ---
SPOKE TO PATIENT AND HE AND HIS ACCEPTED HOME HEALTH AGENCY THAT WAS SET UP BY [facility], NURSE WILL BE OUT 03/14
[2023-03-13] MEDS: DEXTROMET/BENZOCAIN/MENTHOL SF 1 LOZENGE MM PRN (14:22)
--- NOTE | 2023-03-13 14:45 | NUR ---
CM faxed wound care orders, notes and referral packet to [facility] f# [phone]. CM follow up with [facility]. Nohemy at [facility] informs that they received the referral and will be accepting this patient. Service to begin tomorrow 03/14/23. Nohemy is requesting for patient RN to send patient home with one days worth of wound care supplies, including the venelex ointment and iodoform packing strips. will let RN know.
[2023-03-13 15:25] VITALS: BP_SYST 146
[2023-03-13 15:48] VITALS: BP_SYST 150
--- NOTE | 2023-03-13 16:53 | NUR ---
patient dc home, education provided regarding disease mgt, wound care and when to seek medical attention, wound care supplies provided, iv in dc with cath intact, patient transported home via private auto, home health set up, no other needs at this time
[2023-03-15 05:10] LABS: ENDOMYSIAL ANTIBODY IGA Negative (Negative)
== END 2023-03-13 16:30 | disposition home health service (06) | DRG 871 ==
LOC: SED 17:48 → STU 22:13 → SMU 03-06 09:56
PROVIDERS: ADMIT Preventive Medicine Preventive Medicine/Occupational Environmental Medicine; ATTEND Preventive Medicine Preventive Medicine/Occupational Environmental Medicine
PROC: 0DB78ZX Excision of Stomach, Pylorus, Via Natural or Artificial Opening Endoscopic, Diagnostic (ICD-10-PCS; 2023-03-07)
PROC: 0DB58ZX Excision of Esophagus, Via Natural or Artificial Opening Endoscopic, Diagnostic (ICD-10-PCS; 2023-03-07)
PROC: 0DB98ZX Excision of Duodenum, Via Natural or Artificial Opening Endoscopic, Diagnostic (ICD-10-PCS; principal; 2023-03-07 11:10)
PROC: B24BZZ4 Ultrasonography of Heart with Aorta, Transesophageal (ICD-10-PCS; 2023-03-10)
PROC: 02HV33Z Insertion of Infusion Device into Superior Vena Cava, Percutaneous Approach (ICD-10-PCS; 2023-03-10)
PROC: B548ZZA Ultrasonography of Superior Vena Cava, Guidance (ICD-10-PCS; 2023-03-10)
DX: A41.9 Sepsis, unspecified organism (principal); E43 Unspecified severe protein-calorie malnutrition; K22.11 Ulcer of esophagus with bleeding; K29.71 Gastritis, unspecified, with bleeding; E87.20 Acidosis, unspecified; E87.1 Hypo-osmolality and hyponatremia; L03.116 Cellulitis of left lower limb; M86.8X7 Other osteomyelitis, ankle and foot; N39.0 Urinary tract infection, site not specified; I13.0 Hypertensive heart and chronic kidney disease with heart failure and stage 1 through stage 4 chronic kidney disease, or unspecified chronic kidney disease; N17.9 Acute kidney failure, unspecified; I50.9 Heart failure, unspecified; E83.41 Hypermagnesemia; E11.65 Type 2 diabetes mellitus with hyperglycemia; E11.621 Type 2 diabetes mellitus with foot ulcer; E78.5 Hyperlipidemia, unspecified; I25.10 Atherosclerotic heart disease of native coronary artery without angina pectoris; E83.51 Hypocalcemia; E83.39 Other disorders of phosphorus metabolism; E11.51 Type 2 diabetes mellitus with diabetic peripheral angiopathy without gangrene; E11.43 Type 2 diabetes mellitus with diabetic autonomic (poly)neuropathy; D64.9 Anemia, unspecified; K31.84 Gastroparesis; E83.52 Hypercalcemia; E87.6 Hypokalemia; E11.69 Type 2 diabetes mellitus with other specified complication; F19.10 Other psychoactive substance abuse, uncomplicated; B96.1 Klebsiella pneumoniae [K. pneumoniae] as the cause of diseases classified elsewhere; N18.9 Chronic kidney disease, unspecified; E11.22 Type 2 diabetes mellitus with diabetic chronic kidney disease; B95.1 Streptococcus, group B, as the cause of diseases classified elsewhere; E88.09 Other disorders of plasma-protein metabolism, not elsewhere classified; K21.9 Gastro-esophageal reflux disease without esophagitis; E80.6 Other disorders of bilirubin metabolism; Z79.1 Long term (current) use of non-steroidal anti-inflammatories (NSAID); Z79.899 Other long term (current) drug therapy; Z95.1 Presence of aortocoronary bypass graft; Z86.73 Personal history of transient ischemic attack (TIA), and cerebral infarction without residual deficits; Z68.23 Body mass index [BMI] 23.0-23.9, adult; L97.521 Non-pressure chronic ulcer of other part of left foot limited to breakdown of skin
CPT/HCPCS: 36415; 43239; 71045; 73721; 76376; 76770; 78264-TC; 78315; 80048; 80053; 82043; 82570; 82784; 83516; 83605; 83690; 83735; 83874; 84100; 84302; 84560; 85007; 85025; 85027; 85610-TC; 85651-TC; 85730-TC; 86140; 86255; 86886; 86900; 86901; 87040; 87070-TC; 87075-TC; 87081; 87086; 87186-TC; 88305; 88312; 88313; 93306; 93312; 93923; 96361; 96374; 96375; 99291; A9503; A9541; C9113; G0378; J0290; J0696; J0780; J1450; J1815; J2175; J2250; J2405; J2543; J2765; J3010; J3370; J7050; J7060; J8597